=== PATIENT | male | born 1970 | race Caucasian/White ===

== ENCOUNTER 2025-02-21 09:26 | Emergency (ER) | payer SELFPAY ==
[2025-02-21 09:51] LABS: BASOPHILS ABSOLUTE AUTO 0.03 K/uL (0.00-0.10); BASOPHILS PERCENT AUTO 0.3 % (0.1-1.3); EOSINOPHILS ABSOLUTE AUTO 0.13 K/uL (0.00-0.40); EOSINOPHILS PERCENT AUTO 1.4 % (0.0-5.4); IMMATURE GRAN PERCENT AUTO 0.2 % (0.0-0.7); LYMPHOCYTES ABSOLUTE AUTO 2.55 K/uL (0.8-3.3); LYMPHOCYTES PERCENT AUTO 27.0 % (11.4-47.7); MONOCYTES ABSOLUTE AUTO 0.85 K/uL (0.20-0.90); MONOCYTES PERCENT AUTO 9.0 % (3.3-12.6); NEUTROPHILS ABSOLUTE AUTO 5.87 K/uL (1.0-7.6); NEUTROPHILS PERCENT AUTO 62.1 % (40.0-78.1); PLATELET COUNT,PLT 274 K/uL (130-375); RED BLOOD CELL COUNT 4.77 M/uL (4.14-5.76); WHITE BLOOD CELL COUNT,WBC 9.5 K/uL (3.2-11.0)
[2025-02-21 09:54] LABS: IMMATURE GRAN ABSOLUTE AUTO 0.02 K/uL (0.00-0.23)
[2025-02-21 10:12] LABS: EST CRCL DRUG DOSING (CG) 103.28 mL/min; ESTIMATED GFR 91 mL/min (>60); POTASSIUM,K 4.3 mmol/L (3.6-5.2)
[2025-02-21 10:31] LABS: T4 FREE 0.91 ng/dL (0.76-1.46); TSH ULTRASENSITIVE 1.608 uIU/mL (0.358-3.740)
[2025-02-21 10:34] LABS: ALANINE AMINOTRANSFERASE,ALT 43 U/L (12-78); ASPARTATE AMNIOTRANSFERASE,AST 20 U/L (15-37); BILIRUBIN TOTAL 0.9 mg/dL (0.2-1.0); BLOOD UREA NITROGEN,BUN 16 mg/dL (7-18); CARBON DIOXIDE,CO2 29 mmol/L (21-32); CHLORIDE,CL 102 mmol/L (100-108); CREATININE 1.0 mg/dL (0.8-1.3); GLUCOSE RANDOM 161 mg/dL (74-106); PROTEIN TOTAL,TP 7.2 g/dL (6.4-8.2); SODIUM,NA 138 mmol/L (140-148)
[2025-02-21 10:36] LABS: A/G RATIO 0.9 (1.2-2.2)
[2025-02-21 10:40] LABS: APPEARANCE,URINE CLEAR (CLEAR); GLUCOSE,URINE NEGATIVE (NEGATIVE); OCCULT BLOOD,URINE NEGATIVE (NEGATIVE)
[2025-02-21 10:48] LABS: AMPHETAMINES SCREEN, URINE NEGATIVE (NEGATIVE); METHADONE SCREEN, URINE NEGATIVE (NEGATIVE); METHAMPHETAMINES SCREEN, URINE NEGATIVE (NEGATIVE); OXYCODONE SCREEN,URINE NEGATIVE (NEGATIVE); PROPOXYPHENE SCREEN,URINE NEGATIVE (NEGATIVE); THC SCREEN,URINE 50 NG/ML NEGATIVE (NEGATIVE)
[2025-02-21 10:52] LABS: SQUAMOUS EPITHELIAL CELLS,UR NOT SEEN /HPF; UROTHELIAL CELLS,URINE NOT SEEN /HPF
[2025-02-21] MEDS: Sodium Chloride 0.9% 10 ML Syringe FLUSH ONE (10:53)
[2025-02-21] MEDS: Iopamidol 612 MG/ML 100 ML Bottle IV PRN (10:54)
== END 2025-02-21 14:15 ==
LOC: JP.ED 09:26
DX: I48.91 Unspecified atrial fibrillation (principal); I26.99 Other pulmonary embolism without acute cor pulmonale
CPT/HCPCS: 36415; 71275; 80053; 80305; 81001; 84439; 84443; 84484; 85025; 93005; 96372; 99285; J1650; Q9967